=== PATIENT | female | born 1945 | race Caucasian/White ===

== ENCOUNTER 2019-07-15 18:00 | Inpatient (IN) | payer MEDICARE ==
[~2019-07-15] VITALS: Ht 160 cm; Wt 73.4 kg
[2019-07-15 21:19] VITALS: BP 153/73; BMI 29.7
--- NOTE | 2019-07-16 02:27 | NUR ---
B.) PT IS ALERT AND ORIENTED TO SELF, PLACE AND TIME. SHE IS ABLE TO MAKE HER NEEDS KNOWN.SHE IS CONTINENT OF B&B AND SHE IS ABLE TO AMBULATE ON HER OWN WITH HER WALKER THAT SHE BROUGHT IN HERSELF. SHE IS PLEASANT WITH STAFF AND PEERS. SHE IS AN UNCONTROLLED TYPE ONE DIABETIC. HER FSBS IS 400 I.)PROVIDED INSULIN PER DR. BETI Spann) COMPLIANT WITH INSULIN. FSBS AT 2330 396. FSBS AT 0230 WAS 250. TRENDING DOWNWARD. P.) WILL CONTINUE TO MONITOR.
[2019-07-16] MEDS ORDERED: DONEPEZIL HCL5 MG PO (02:40)
[2019-07-16] MEDS ORDERED: BENADRYL25 MG PO (02:41)
[2019-07-16] MEDS ORDERED: OS-CAL500 MG PO (02:42)
[2019-07-16] MEDS ORDERED: DEPAKOTE125 MG PO (02:43)
[2019-07-16] MEDS ORDERED: NEURONTIN 300300 MG PO (02:44)
[2019-07-16] MEDS ORDERED: HUMALOG MIX 75/10 ML SC (02:46)
[2019-07-16] MEDS ORDERED: LIPITOR20 MG PO (02:53)
[2019-07-16] MEDS ORDERED: COZAAR50 MG PO (02:54)
[2019-07-16] MEDS ORDERED: GLUCOPHAGE500 MG PO (02:54)
[2019-07-16] MEDS ORDERED: METOPROLOL TART25 MG PO (02:55)
[2019-07-16] MEDS ORDERED: SYNTHROID50 MCG PO (02:56)
[2019-07-16] MEDS ORDERED: ALBUTEROL SULF8.5 GM INH (02:59)
[2019-07-16] MEDS ORDERED: VITAMIN D31000 UNI2 PO (03:00)
[2019-07-16] MEDS ORDERED: TOUJEO SOL300 UNIT/1 SC (03:13)
[2019-07-16 07:00] VITALS: BP 164/78
[2019-07-16 07:12] LABS: BASOPHILS 0.3 % (0-2); HEMATOCRIT 34.3 % (36.0-48.0); HEMOGLOBIN 11.4 g/dL (12-16); IMMATURE GRANULOCYTES 0.1 % (0-5); LYMPHOCYTES 39.7 % (15-50); MCH 32.1 pg (26.0-34.0); MCHC 33.2 g/dL (31.0-37.0); MCV 96.6 fL (80.0-100.0); MEAN PLATELET VOLUME 9.8 fL (7.4-10.4); MONOCYTES 4.7 % (2-11); NEUTROPHILS 49.2 % (40-80); PLATELET COUNT 260 10x3/uL (130-400); RBC 3.55 10x6/uL (4.00-5.40); RDW 15.3 % (11.5-14.5); WBC 6.9 10x3/uL (4.8-10.8)
[2019-07-16 07:57] LABS: ALBUMIN 3.3 g/dL (3.4-5.0); ALKALINE PHOSPHATASE 111 U/L (46-116); ALT (SGPT) 15 U/L (10-68); BILIRUBIN - TOTAL 0.62 mg/dL (0.2-1.3); CALC OSMOLALITY 286 mosm/kg (275-300); CALCIUM 9.1 mg/dL (8.5-10.1); CARBON DIOXIDE 27.6 mmol/L (21.0-32.0); CHLORIDE - SERUM 102 mmol/L (98-107); CHOL - HDL RATIO 2.1 ratio (2.3-4.1); CHOLESTEROL, TOTAL 113 mg/dL (0-200); GLUCOSE 222 mg/dL (74-106); HDL CHOLESTEROL 54 mg/dL (32-96); LDL CHOLESTEROL 44 mg/dL (0-100); LDL-HDL RATIO 0.8 ratio (1.5-3.5); POTASSIUM - SERUM 4.3 mmol/L (3.5-5.1); PROTEIN - SERUM 7.5 g/dL (6.4-8.2); SODIUM 139 mmol/L (136-145); THYROID STIMULATING HORMONE 2.88 uIU/mL (0.36-3.74); TRIGLYCERIDE 77 mg/dL (30-200); UREA NITROGEN 19 mg/dL (7-18); VALPROIC ACID (DEPAKOTE) 9.1 ug/mL (50.0-100.0); eGFR NON AFRICAN AMERICAN 57 mL/min (90-120)
[2019-07-16 08:07] LABS: APPEARANCE CLOUDY (CLEAR); BACTERIA MANY /hpf (NEGATIVE); BILIRUBIN NEGATIVE (NEGATIVE); COLOR YELLOW (YELLOW); EPITHELIAL CELLS 0-5 /hpf (0-5); GLUCOSE 500 mg/dL (NEGATIVE); KETONE SMALL mg/dL (NEGATIVE); NITRITE NEGATIVE (NEGATIVE); PROTEIN NEGATIVE (NEGATIVE); RED CELLS - URINE OCC /hpf (0-5); SPECIFIC GRAVITY 1.015 (1.005-1.020); UROBILINOGEN NORMAL (NORMAL); WHITE CELLS - URINE 0-5 /hpf (NEGATIVE)
[2019-07-16 10:20] VITALS: Ht 160 cm; Wt 73.4 kg
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
[2019-07-17 00:17] VITALS: BP 149/65
[2019-07-17 08:11] LABS: RAPID PLASMA REAGIN Non Reactive (Non Reactive)
[2019-07-17 09:00] VITALS: BP 112/55
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
--- NOTE | 2019-07-17 12:10 | NUR ---
The patient's fsbs is 492, ordered a stat glucose and paged Dr. Delaney.
--- NOTE | 2019-07-17 12:55 | NUR ---
Received a call from the lab with a critical glucose 550, let Dr. Delaney know. He has ordered an increase in Lantus to 30 units at .
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
--- NOTE | 2019-07-17 16:30 | NUR ---
The patient has a fsbs of 441, provided 12 unuits humalog, request a lab redraw stat, let dr. Delaney be aware.
[2019-07-17 20:00] VITALS: BP 150/67
--- NOTE | 2019-07-17 20:06 | NUR ---
PATIENT IS PLEASANT BUT CONFUSED, SHE IS DISORIENTED TO TIME, PLACE AND SITUATION. SHE IS CALM, CAN MAKE ALL OF HER NEEDS KNOWN. WILL FOLLOW POC
--- NOTE | 2019-07-18 07:58 | NUR ---
The patient is awake and she is ambulating in the hallway, she is confused and she has said "When can we go to the cafeteria?" She is pleasant. She uses a walker to ambulate. Provide prescribed meds. The patient is compliant with meds. Continue POC.
[2019-07-18 08:38] VITALS: BP 163/78
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
--- NOTE | 2019-07-18 12:00 | NUR ---
FSBS 474, Dr. Delaney notified.
--- NOTE | 2019-07-18 13:12 | NUR ---
CRITACAL LAB GLUCOSE CALLED 524, DR. KIRBY AWARE.
--- NOTE | 2019-07-18 13:26 | NUR ---
Dr. Delaney called with a new order to change the patient's insulin from low resistance to high resisitance.
[2019-07-18 20:32] VITALS: BP 91/43
--- NOTE | 2019-07-18 20:44 | NUR ---
FSBS 33. LAB CALLED FOR STAT GLUCOSE DRAW. PT ATE HALF TURKEY SANDWICH AND HALF ORANGE. DRANKED ORANGE JUICE.
--- NOTE | 2019-07-18 20:50 | NUR ---
LAB CALLED WITH GLUCOSE OF 41. DR KIRBY CALLED AND ABHILASH HELD AND S/S CHANGED TO INTERMEDIATE PER ORDERS.
--- NOTE | 2019-07-18 20:59 | NUR ---
PATIENT IS ORIENTED TO SELF ONLY, HOWEVER SHE FUNCTIONS REALLY WELL, SHE CAN VERBALIZE ALL OF HER NEEDS WELL THE NEEDS OF OTHERS. SHE IS HELPFUL WITH THE OTHER PATIENTS, COMPLIANT WITH MEDS. WILL FOLLOW POC
--- NOTE | 2019-07-18 22:03 | NUR ---
BLOOD SUGAR RECHECKED AT 60. ORANGE JUICE AND PEANUT BUTTER WITH DALJIT CRACKERS GIVEN TO PATIENT.
--- NOTE | 2019-07-18 22:20 | NUR ---
HAD EPISODE OF VONITING AND DIARRHEA.
--- NOTE | 2019-07-18 23:35 | NUR ---
FSBS 49. PT ATE PUDDING AND DALJIT BINGCHERS.
--- NOTE | 2019-07-19 00:35 | NUR ---
FSBS 169. DIARRHA X2.
[2019-07-19 10:04] VITALS: BP 146/71
--- NOTE | 2019-07-19 10:43 | NUR ---
PT SITTING AND TALKING WITH PEERS AT THIS TIME. PT IS VERY FRIENDLY WITH STAFF AND PEERS. PT IS CONFUSED AND ALERT TO SELF ONLY. PT DOES VERY WELL WITH INTERACTION, MAKING NEEDS KNOWN. PT IS COMPLIANT WITH MEDS, STAFF AND VITALS. PT AMBUALTES WITH A WALKER. PT HAS HAD NO AGGRESSION NOTED. WILL CONT PLAN OF CARE.
--- NOTE | 2019-07-19 10:46 | PN ---
PATIENT:UZMA CALDERON MEDICAL RECORD: [id number] LOCATION:[facility] ADMISSION DATE: 07/15/19 PROGRESS NOTE DATE OF SERVICE: 07/18/2019 SUBJECTIVE: The patient's case was discussed with staff. She has no new complaint. OBJECTIVE: The patient is in good behavioral control. She has had no aggressive behavior and no thoughts of harming herself or others. ASSESSMENT: Vascular dementia. PLAN: Current medicines have been reviewed and will be maintained. TRANSINT:[id number] Voice Confirmation ID: [id number] DOCUMENT ID: [id number] OCHOA RIVERA MD at 1046 CC: [id number] DICTATION DATE: 07/18/19 1220 WHEEL PRESS CLERK: 07/18/19 1503 ADM IN [place] [id number] [place] [id number]
--- NOTE | 2019-07-19 22:48 | NUR ---
PATIENT IS ORIENTED TO SELF ONLY, SHE CAN MAKE ALL NEEDS KNOWN, COMPLIANT WITH MEDICATION. WILL FOLLOW POC
[2019-07-20 02:06] VITALS: BP 150/60
[2019-07-20 07:31] VITALS: BP 161/79
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
--- NOTE | 2019-07-20 16:03 | NUR ---
PT IS RESTING IN RECLINING CHAIR IN DAYROOM WITH PEERS. CALM AMD COOPERATIVE WITH ASSESSMENT. MED COMPLIANT. PRESCRIBED MEDS PROVIDED ORDERED. REDIRECT AND REORIENT NEEDED. NO BEHAVIORS NOTED. FALL PRECAUTIONS IN PLACE. WILL CPOC.
--- NOTE | 2019-07-20 16:11 | NUR ---
Nutrition Follow-up: Diet: Diabetic PO intake: ~79% average x last 9 meals Last BM: 07/19/19 x 3. WT: 165# (07/19/19); Admit wt: 167# (07/15/19) Meds noted: rocephin, lantus, SSI, metformin. Labs noted: Glu 593mg/dL (07/20/19) Continue current diet. Blood sugars to be controlled with insulin. Will continue to monitor. RD following.
[2019-07-20 19:48] VITALS: BP 132/56
--- NOTE | 2019-07-21 00:10 | NUR ---
B.) PT IS ALERT AND ORIENTED TO SELF, PLACE AND SITUATION. SHE IS PLEASANT WITH STAFF AND PEERS. SHE IS ABLE TO MAKE HER NEEDS KNOWN. SHE IS ABLE TO AMBULATE WITH THE ASSISTANCE OF A WALKER THAT SHE BROUGHT IN HERSELF. I.) PROVIDED PM MEDICATIONS PRESCRIBED. R.) COMPLIANT WITH ALL MEDICATIONS. P.) WILL CONTINUE TO MONITOR.
[2019-07-21 08:46] VITALS: BP 119/75
--- NOTE | 2019-07-21 10:52 | NUR ---
PT IS SITTING IN RECLINING CHAIR IN DAYROOM WITH PEERS. CALM AND COOPERATIVE WITH ASSESSMENT. PRESCRIBED MEDS PROVIDED. MED COMPLIANT. REDIRECT AND REORIENT NEEDED. NO BEHAVIORS NOTED AT THIS TIME. FALL PRECAUTIONS IN PLACE. WILL CPOC.
--- NOTE | 2019-07-21 11:46 | NUR ---
FSBS 521, Provided 20 units insulin, ordered a stat glucose and let Dr. Delaney be aware.
--- NOTE | 2019-07-21 12:00 | NUR ---
No new orders from Dr. Delaney.
--- NOTE | 2019-07-21 12:30 | NUR ---
CRITICAL GLUCOSE 536, NO NEW ORDER.
--- NOTE | 2019-07-21 15:20 | PN ---
PATIENT:UZMA CALDERON MEDICAL RECORD: [id number] LOCATION:[facility] ADMISSION DATE: 07/15/19 PROGRESS NOTE DATE OF SERVICE: 07/20/2019 SUBJECTIVE: The patient's case was discussed with staff. She has no new complaint. OBJECTIVE: The patient has impairment of her cognitive functioning, but no thoughts of harming herself or others. She is generally tolerating her medications well. ASSESSMENT: Vascular dementia. PLAN: The patient will be maintained on current medicines. I anticipate she could [facility] the [facility]. TRANSINT:[id number] Voice Confirmation ID: [id number] DOCUMENT ID: [id number] OCHOA RIVERA MD at 1520 CC: [id number] DICTATION DATE: 07/20/19 1644 WHEAT COMBINE DRIVER: 07/20/19 2335 ADM IN [facility] [address] [place] [id number]
--- NOTE | 2019-07-21 22:25 | NUR ---
REC'D SITTING IN THE DAYROOM. AMBULATORY WITH WALKER. PLEASANT AND COOPERATIVE. PREOCCUPIED WITH BLOOD SUGAR. ADMINISTER MEDS AND MONITOR COMPLIANCE. MONITOR FOR AGGRESSIVE BEHAVIOR AND REDIRECT NEEDED. MED COMPLIANT. NO AGGRESSION OBSERVED. CONTINUE POC AND PROVIDE SAFE ENVIRONMENT.
[2019-07-21 22:44] VITALS: BP 182/89
--- NOTE | 2019-07-22 11:30 | NUR ---
FSBS 407.JOEY HARRISON RN NOTIFIED OF ELEVATED BLD SUGAR,MESSAGE LEFT ON PHONE.
--- NOTE | 2019-07-22 11:34 | PN ---
PATIENT:UZMA CALDERON MEDICAL RECORD: [id number] LOCATION:[facility] ADMISSION DATE: 07/15/19 PROGRESS NOTE DATE OF SERVICE: 07/21/2019 SUBJECTIVE: The patient's case was discussed. She has no new complaint. OBJECTIVE: The patient denies that she would seek to harm herself or others. She has no overt psychotic symptoms. She is impaired cognitively, but has almost no insight about this. ASSESSMENT: Vascular dementia. PLAN: Current medicines have been reviewed. Long-term prognosis is guarded. TRANSINT:[id number] Voice Confirmation ID: [id number] DOCUMENT ID: [id number] OCHOA RIVERA MD at 1134 CC: [id number] DICTATION DATE: 07/21/19 1532 WAREHOUSE TEAM LEADER: 07/21/19 2208 ADM IN [facility] [address] [place] [address]
--- NOTE | 2019-07-22 12:05 | NUR ---
BLD SUGAR RECHECKED WITH A DIFFERENT GLUCOMETER,448.STAT SERUM GLUCOSE ORDERED.
--- NOTE | 2019-07-22 12:05 | NUR ---
A DIFFERENT GLUCOMETER OBTAINED AND FSBS RECHECKED,434.THOMAS OBTAIN STAT SERUM GLUCOSE PER ORDERS AND USE SLIDING SCALE INSULIN PER ORDERS.
--- NOTE | 2019-07-22 12:30 | NUR ---
THIS IS A CORRECTION FOR EARLIER DOCUMENTATION OF SERUM GLUCOSE.GLUCOSE WAS 448.WILL GIVE 20 UNITS REGULAR INSULIN PER SLIDING SCALE.
[2019-07-22 16:56] VITALS: BP 132/68
--- NOTE | 2019-07-22 17:01 | NUR ---
IS ORIENTED TO SELF ONLY.DOES KNOW SHE IS IN A HOSPITAL BUT STATED SHE IS IN [place] AND IT IS 2011.ARGUMENTIVE AT TIMES WITH STAFF.GOT UPSET SHE HAD TO DELAY LUNCH UNTILL SERUM GLUCOSE WAS DRAWN.WILL CONTINUE WITH CURRENT PLAN OF CARE,MONITOR FOR CHANGES AND SAFETY.
[2019-07-22 20:04] VITALS: BP 120/60
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
--- NOTE | 2019-07-23 09:44 | NUR ---
The patient is awake and alert, she is pleasant and sociable. The patient can ambulate with a walker. Provide prescribed meds. The patient is compliant with meds. Continue POC.
[2019-07-23 10:33] VITALS: BP 108/49
--- NOTE | 2019-07-23 12:32 | NUR ---
GLUCOSE WAS 559 MG/DL. WILL ORDER STAT BLOOD GLUCOSE.
--- NOTE | 2019-07-23 12:33 | NUR ---
20 UNITS ADMINISTERED PER SLIDING SCALE ORDERS. WILL RECHECK FOR EFFECTIVENESS.
--- NOTE | 2019-07-23 13:50 | NUR ---
Critical glucose 601, Dr. Delaney notified.
--- NOTE | 2019-07-23 15:00 | NUR ---
NUTRITION F/U PT TOLERATING DIABETIC DIET BUT PO INTAKE DECREASED PAST THREE MEALS. WT DOWN 1# FROM ADMIT. BM RECORDED ON 07/23/19. NOTE ELEVATE GLUCOSE. WILL CONTINUE TO PROVIDE DIET, MONITOR PO INTAKE. RD FOLLOWING
--- NOTE | 2019-07-23 15:44 | NUR ---
Nutrition Follow-up: Diet: Diabetic PO intake: ~60% average x last 9 meals Last BM: 07/23/19 x 2. WT: 165# (07/19/19); Admit wt: 167# (07/15/19) Meds noted: lantus, metformin, SSI. Labs noted: POC Glu- 44 (6:35), 559 (12:22), 601 (12:50) Recommend continue current diet. Hopefully blood sugar will begin to trend consistently WNL. RD following.
--- NOTE | 2019-07-23 15:55 | PN ---
PATIENT:UZMA CALDERON MEDICAL RECORD: [id number] LOCATION:[facility] ADMISSION DATE: 07/15/19 PROGRESS NOTE DATE OF SERVICE: 07/22/2019 SUBJECTIVE: The patient's case was discussed with staff. She has no new complaint. OBJECTIVE: The patient is not having any sexually inappropriate behavior. She is participating in treatment reasonably well. Unfortunately, her blood sugar is quite labile, going from 140 this morning to 400 at lunchtime. She will be monitored for clinical changes associated with her treatment for her diabetes and I expect or believe that meant some of her behavior issues and mood issues are related to the lability in her blood sugar. TRANSINT:[id number] Voice Confirmation ID: [id number] DOCUMENT ID: [id number] OCHOA RIVERA MD at 1555 CC: [id number] DICTATION DATE: 07/22/19 1631 PRODUCT SUPPORT REPRESENTATIVE: 07/23/19 0207 ADM IN [place] [id number] [place] [address]
[2019-07-23 20:13] VITALS: BP 110/52
--- NOTE | 2019-07-23 21:30 | NUR ---
FSBS 58. PUDDING AND MILK GIVEN TO PATIENT.
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
--- NOTE | 2019-07-23 22:58 | NUR ---
FSBS 65. ORANGE JUICE GIVEN TO PT.
--- NOTE | 2019-07-24 01:06 | NUR ---
FSBS 158.
--- NOTE | 2019-07-24 07:44 | NUR ---
The patient is awake and alert, she is c/o diarrhea. She ambulates on a walker. She is calm and pleasant. She asked "What time is someone picking me up?" Explained to her that she is not leaving today. She said "Oh, ok." Provide prescribed meds. The patient is compliant with meds. Her blood sugars continue to vascilate. Continue POC.
[2019-07-24 11:07] VITALS: BP 122/60
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
--- NOTE | 2019-07-24 19:30 | NUR ---
RECEIVED IN DAYROOM. WATCHING TV. CALM AND COOPERATIVE WITH CARE AND ASSESSMENT. PLEASANT. NO AGGRESSIVE BEHAVIOR. TRIES TO HELP WITH OTHER PATIENS. REDIRECT AND REORIENT NEEDED. WATCHES TV WHILE WAITING ON PM MEDICATIONS. CONTINUE PLAN OF CARE.
[2019-07-24 19:54] VITALS: BP 138/54
--- NOTE | 2019-07-25 10:30 | PN ---
PATIENT:UZMA CALDERON MEDICAL RECORD: [id number] LOCATION:[facility] ADMISSION DATE: 07/15/19 PROGRESS NOTE DATE OF SERVICE: 07/24/2019 SUBJECTIVE: The patient's case was discussed with staff. She has no new complaint. OBJECTIVE: The patient is in good behavioral control, has not been aggressive and says that she is not going to have conflict with the other woman at the alf. ASSESSMENT: Vascular dementia. PLAN: Brief supportive and educational interventions were made. Long-term prognosis is guarded. TRANSINT:[id number] Voice Confirmation ID: [id number] DOCUMENT ID: [id number] OCHOA RIVERA MD at 1030 CC: [id number] DICTATION DATE: 07/24/19 1643 RECYCLING ATTENDANT: 07/25/19 0039 ADM IN [facility] [address] [place] [address]
--- NOTE | 2019-07-25 11:08 | NUR ---
The patient is awake and alert, she says she is tired this am, she is pleasant and cooperative. She tries to help other patients and staff. She ambulates with a walker. She is not making any paranoid statements and she has not been aggressive. Provide prescribed meds. The patient is compliant with medications. Continue POC.
--- NOTE | 2019-07-25 11:45 | NUR ---
UYYG=[id number] LAB CALLEDTO DRAW A STAT GLUCOSE
--- NOTE | 2019-07-25 12:40 | NUR ---
fsbs 421, ordered stat glucose, notified Dr. Delaney.
[2019-07-25 19:00] VITALS: BP 126/62
--- NOTE | 2019-07-25 19:34 | NUR ---
RECEIVED IN DAYROOM. SITTING IN WHEELCHAIR WITH PEERS AT HER SIDE. CALM AND COOPERATIVE WITH CARE AND ASSESSMENT. NO SIGNS OF AGGRESSION. ENCOURAGE TO EXPRESS NEEDS. SITTING IN A CHAIR OUTSIDE OF NURSES STATION AT THIS TIME. CONTINUE PLAN OF CARE
[2019-07-26 09:47] VITALS: BP 136/69
--- NOTE | 2019-07-26 17:22 | NUR ---
PATIENT HAS BEEN QUITE COOPERATIVE THIS SHIFT. NO AGGRESSION NOTED. TAKES MEDS WHOLE WITHOUT DIFFICULTY. VERY COOPERATIVE WITH PLAN OF CARE. CONT POC DIRECTED.
--- NOTE | 2019-07-26 19:18 | NUR ---
RECEIVED IN DAYROOM, SITTING IN A RECLINER WITH PEERS AT HER SIDE. CALM AND COOPERATIVE WITH CARE AND ASSESSMENT. NO SIGNS OF AGGRESSION. REDIRECT AND REORIENT NEEDED. RESTING IN BED WITH EYES OPEN AT THIS TIME. CONTINUE PLAN OF YURI
--- NOTE | 2019-07-27 08:00 | NUR ---
PT IS AWAKE AND ALERT TO SELF. CALM AND COOPERATIVE WITH ASSESSMENT. PRESCRIBED MEDS PROVIDED ORDERED. MED COMPLIANT. NO BEHAVIORS NOTED AT THIS TIME. REDIRECT AND REORIENT NEEDED. WILL CPOC.
[2019-07-27 09:25] VITALS: BP 127/60
--- NOTE | 2019-07-27 16:07 | PN ---
PATIENT:UZMA CALDERON MEDICAL RECORD: [id number] LOCATION:[facility] ADMISSION DATE: 07/15/19 PROGRESS NOTE DATE OF SERVICE: 07/26/2019 SUBJECTIVE: The patient's case was discussed with staff. She has no new complaint. OBJECTIVE: The patient is impaired cognitively, but her mood is euthymic. Her affect is appropriate. Short-term memory is moderately impaired, and she has no thoughts of harming herself or others and no psychotic symptoms. ASSESSMENT: No change in diagnoses. PLAN: Supportive and educational interventions were made. The patient will be maintained on current medicines. I anticipate she can be transitioned out of the hospital soon. TRANSINT:[id number] Voice Confirmation ID: [id number] DOCUMENT ID: [id number] OCHOA RIVERA MD at 1607 CC: [id number] DICTATION DATE: 07/26/19 1129 LEGAL ARBITRATOR: 07/26/19 1220 ADM IN [place] [id number] [place] [address]
--- NOTE | 2019-07-27 16:07 | PN ---
PATIENT:UZMA CALDERON MEDICAL RECORD: [id number] LOCATION:[facility] ADMISSION DATE: 07/15/19 PROGRESS NOTE DATE OF SERVICE: 07/25/2019 SUBJECTIVE: The patient's case was discussed with staff. She has no new complaint. OBJECTIVE: The patient is in good behavioral control with poor insight about her situation. ASSESSMENT: Vascular dementia. PLAN: Current medicines have been reviewed. Brief supportive and educational interventions were made. I anticipate she can be discharged soon. TRANSINT:[id number] Voice Confirmation ID: [id number] DOCUMENT ID: [id number] OCHOA RIVERA MD at 1607 CC: [id number] DICTATION DATE: 07/25/19 1106 GLUE SPECIALTY SUPERVISOR: 07/25/19 1148 ADM IN [place] [id number] [place] [id number]
--- NOTE | 2019-07-27 20:26 | NUR ---
RECEIVED IN HALLWAY WALKING IN HER BEDROOM. CALM AND COOPERATIVE WITH CARE AND ASSESSMENT. NO SIGNS OF AGGRESSION. ENCOURAGE TO EXPRESS NEEDS. RESTING IN BED WITH EYES CLOSED AT THIS TIME. CONTINUE PLAN OF CARE
[2019-07-28 03:29] VITALS: BP 106/51
[2019-07-28 09:27] VITALS: BP 123/67
--- NOTE | 2019-07-28 14:03 | PN ---
PATIENT:UZMA CALDERON MEDICAL RECORD: [id number] LOCATION:[facility] ADMISSION DATE: 07/15/19 PROGRESS NOTE DATE OF SERVICE: 07/27/2019 SUBJECTIVE: The patient's case was discussed with staff. She has no new complaint. OBJECTIVE: The patient denies intent to harm herself or others. She is participating in treatment, minimally. ASSESSMENT: Vascular dementia. PLAN: The patient is appropriate for transitioning back [facility] [place] [facility]. There are some nonclinical issues or obstacles preventing that today. Once those are cleared, she can be discharged. TRANSINT:[id number] Voice Confirmation ID: [id number] DOCUMENT ID: [id number] OCHOA RIVERA MD at 1403 CC: [id number] DICTATION DATE: 07/27/19 1625 WELDING EQUIPMENT REPAIRER SUPERVISOR: 07/27/19 2125 ADM IN [place] [id number] [place] [id number]
[2019-07-28] MEDS ORDERED: ZOLOFT50 MG PO (21:37)
[2019-07-28] MEDS ORDERED: COZAAR25 MG PO (21:37)
[2019-07-28] MEDS ORDERED: Senokot TAB PO (21:38)
--- NOTE | 2019-07-29 00:17 | NUR ---
B) Patient is alert and oriented to person, place and time, ADL independant, calm and cooperative I) Administered scheduled medications as ordered, assisted with needs, monitored for safety R) Mediation compliant, sleeping now quietly in her bed, P) Continue plan of care.
[2019-07-29 04:07] VITALS: BP 165/76
[2019-07-29 09:13] VITALS: BP 114/41
--- NOTE | 2019-07-29 10:15 | NUR ---
DISCHARGE PAPERWORK COMPLETED. LEFT HOSPITAL VIA VAN TO [facility]. BELONGINGS GIVEN TO PATIENT.
--- NOTE | 2019-07-29 12:00 | PN ---
PATIENT:UZMA CALDERON MEDICAL RECORD: [id number] LOCATION:[facility] ADMISSION DATE: 07/15/19 PROGRESS NOTE DATE OF SERVICE: 07/28/2019 SUBJECTIVE: The patient's case was discussed with staff. She has no new complaint. OBJECTIVE: The patient is in good behavioral control with poor insight about her situation. ASSESSMENT: Vascular dementia. PLAN: Arrangements have been finalized with the group home and the transportation. She will be returned to the [facility] tomorrow. TRANSINT:[id number] Voice Confirmation ID: [id number] DOCUMENT ID: [id number] OCHOA RIVERA MD at 1200 CC: [id number] DICTATION DATE: 07/28/19 1546 PROSPECTING DRILLER HELPER: 07/28/19 2110 ADM IN [place] [id number] [place] [address]
== END 2019-07-29 10:15 | DRG 884 ==
LOC: D.PSYCH 18:00
PROVIDERS: ADMIT Psychiatry & Neurology Psychiatry; ATTEND Psychiatry & Neurology Psychiatry
DX: F01.51 Vascular dementia, unspecified severity, with behavioral disturbance (principal); N39.0 Urinary tract infection, site not specified; E11.9 Type 2 diabetes mellitus without complications; I10 Essential (primary) hypertension; E78.5 Hyperlipidemia, unspecified; E03.9 Hypothyroidism, unspecified; M19.90 Unspecified osteoarthritis, unspecified site; E55.9 Vitamin D deficiency, unspecified; E53.8 Deficiency of other specified B group vitamins; F32.9 Major depressive disorder, single episode, unspecified; B96.20 Unspecified Escherichia coli [E. coli] as the cause of diseases classified elsewhere; Z96.652 Presence of left artificial knee joint

== ENCOUNTER 2020-08-17 16:14 | Inpatient (IN) | payer MEDICARE ==
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
[~2020-08-17 16:14] MED LIST: ALBUTEROL SULF8.5 GM INH; BENADRYL25 MG PO; COZAAR25 MG PO; COZAAR50 MG PO; DEPAKOTE125 MG PO; DONEPEZIL HCL5 MG PO; GLUCOPHAGE500 MG PO; HUMALOG MIX 75/10 ML SC; LIPITOR20 MG PO; METOPROLOL TART25 MG PO; NEURONTIN 300300 MG PO; OS-CAL500 MG PO; SYNTHROID50 MCG PO; Senokot TAB PO; TOUJEO SOL300 UNIT/1 SC; VITAMIN D31000 UNI2 PO; ZOLOFT50 MG PO
[2020-08-17] MEDS ORDERED: LANTUS INS100 UNITS/ SC (18:41)
[2020-08-17] MEDS ORDERED: BUSPAR5 MG PO (18:56)
[2020-08-17] MEDS ORDERED: DEPAKOTE ER250 MG (18:57)
[2020-08-17] MEDS ORDERED: FERROUS SULFAT325 MG (18:58)
[2020-08-17] MEDS ORDERED: LASIX20 MG PO (18:58)
[2020-08-17] MEDS ORDERED: GLUCOTROL XL 5 M5 MG (18:59)
[2020-08-17] MEDS ORDERED: HUMALOG 30100 UNITS/ SC (19:00)
[2020-08-17] MEDS ORDERED: K-DUR20 MEQ PO (19:00)
--- NOTE | 2020-08-17 19:16 | NUR ---
PT ADMITTED TO [facility] FROM [facility] FOR AGGRESSIVE BEHAVIOR WITH STAFF. PT ARRIVED VIA FACILITY VAN IN W/C. PT IS CALM AT THIS TIME. NURSE SPOKE WITH DAUGHTER KASSIDY LI FOR CONSENT FOR ADMISSION. PT IS ALERT AND ORIENT TO PERSON, PLACE. WEIGHT OBTAINED: 132.2. VITALS SIGNS: 98.5, 131/55, 74, 19, 94%. FULL CODE. PT ON DROPLET PRECAUTIONS FOR PUI.
[2020-08-17 20:00] VITALS: BP 149/66
[2020-08-17 20:01] VITALS: BP 131/55; BMI 23.4
--- NOTE | 2020-08-17 21:35 | NUR ---
B) Patient is alert and oriented to self, calm and cooperative this shift, I) Administered scheduled medications as ordered, maintained isolation, monitored for safety R) Mediation compliant, resting now quietly in her bed, P) Continue plan of care.
--- NOTE | 2020-08-18 04:38 | NUR ---
COVID SPECIMEN COLLECTED FOR SEND OUT AND SENT TO LAB. PT. TOLERATED WELL.
[2020-08-18 07:28] LABS: BASOPHILS 0.5 % (0-2); EOSINOPHILS 4.2 % (0-7); HEMATOCRIT 38.1 % (36.0-48.0); HEMOGLOBIN 12.3 g/dL (12-16); IMMATURE GRANULOCYTES 0.2 % (0-5); LYMPHOCYTE ABS# 2.18 10x3/uL (1.18-3.74); LYMPHOCYTES 35.2 % (15-50); MCH 31.9 pg (26.0-34.0); MCHC 32.3 g/dL (31.0-37.0); MCV 98.7 fL (80.0-100.0); MEAN PLATELET VOLUME 10.6 fL (7.4-10.4); MONOCYTES 7.9 % (2-11); NEUTROPHIL ABS# 3.23 10x3/uL (1.56-6.13); PLATELET COUNT 239 10x3/uL (130-400); RBC 3.86 10x6/uL (4.00-5.40); RDW 15.1 % (11.5-14.5); WBC 6.2 10x3/uL (4.8-10.8)
[2020-08-18 08:19] LABS: ALBUMIN 3.2 g/dL (3.4-5.0); ANION GAP 10.2 mmol/L (8-16); BILIRUBIN - TOTAL 0.26 mg/dL (0.2-1.3); CALCIUM 9.1 mg/dL (8.5-10.1); CARBON DIOXIDE 30.8 mmol/L (21.0-32.0); CHOL - HDL RATIO 2.6 ratio (2.3-4.1); CREATININE - SERUM 1.2 mg/dL (0.6-1.3); LDL-HDL RATIO 1.2 ratio (1.5-3.5); THYROID STIMULATING HORMONE 2.06 uIU/mL (0.36-3.74); VALPROIC ACID (DEPAKOTE) 22.7 ug/mL (50.0-100.0)
--- NOTE | 2020-08-18 08:30 | NUR ---
NURSE NOTIFIED DR. KIRBY IN REGARDS TO CRITICAL LAB RESULTS. NEW ORDER: START LDSS AND LANTUS ORDER. T.O.R.B: DR. KIRBY/YOEL FRIEDMAN.
[2020-08-18 09:36] VITALS: BP 98/67
[2020-08-18 11:55] VITALS: Wt 65.0 kg
--- NOTE | 2020-08-18 15:10 | NUR ---
pt sitting in w/c in door at this time. confusion noted. redirect and reorient as needed. constant redirection due to droplet isolation precautions. pt does not verbalize understanding. pt compliant with meds, vitals and assessments. pt can make needs known. demanding and arguementative. pt argues with staff. unable to redirect pt behavior due to low congitive function. pt in w/c propells self. fsbs ac and hs with lantus order. chair alarm in place. will cont plan of care.
[2020-08-18 20:00] VITALS: BP 144/63
--- NOTE | 2020-08-18 21:29 | NUR ---
B) Patient is alert and oriented to person, wanders the hallway, informed a female nurse of all her marriage problems in detail at the nurses station, I) Administered scheduled medications as ordered, redirected as needed, isolation protocols, R) Medication noncompliant, refusing FSBS at HS P) Continue plan of care.
--- NOTE | 2020-08-19 06:06 | NUR ---
CHECKED BLOOD GLUCOSE-REGISTERED "HI". PLACED ORDER FOR BLOOD GLUCOSE, GAVE THE 12 UNITS OF REGULAR INSULIN AND CALLED DR. KIRBY AND LEFT A CALL BACK NUMBER. PATIENT IS ALERT BUT TIRED, EXPLAINED TO HER THAT HER BLOOD GLUCOSE WAS HIGH AND THAT LAB WOULD BE HERE SHORTLY TO DRAW HER BLOOD, SHE VERBALIZED UNDERSTANDING.
--- NOTE | 2020-08-19 06:11 | NUR ---
CALLED DR. KIRBY BACK, GAVE REPORT OF BLOOD GLUCOSE REGISTERING "HI" ON THE GLUCOMETER AND THAT 12 UNITS OF REGULAR INSULIN WAS GIVEN PER HOSPITAL PROTOCOL. HE SAID THAT THE PROTOCOL WAS FOLLOWED WAS ACCURATE AND TO CALL HIM WITH THE LAB RESULTS WHEN RECEIVED.
--- NOTE | 2020-08-19 06:14 | NUR ---
ALSO PATIENT REFUSED HER BLOOD GLUCOSE TO BE TAKEN ON LAST NIGHT'S SHIFT DUE TO BE SO UPSET ABOUT HER "CHEATING" ON HER.
--- NOTE | 2020-08-19 07:43 | NUR ---
PREVIOUS SHIFT REPORTED PT REFUSED FSBS AND LANTUS INSULIN AT 1999. FSBS AT 0600 UNABLE TO READ BY MACHINE. LAB CALLED STAT GLUCOSE OF 778 MG/DL. NURSE NOTIFIED DR. KIRBY OF STAT GLUCOSE LEVEL. NEW ORDER FOR REGULAR INSULIN 20 UNITS NOW. T.O.R.B: DR. KIRBY/ELDER, YOEL.
--- NOTE | 2020-08-19 08:14 | NUR ---
PT REC'D [address]IN PER [address] KIRBY FOR BLOOD SUGAR OF 778 MG/DL. PT ALLOWED NURSE AND TOLERATED WELL.
[2020-08-19 09:18] VITALS: BP 113/61
--- NOTE | 2020-08-19 10:59 | NUR ---
PT LAYING IN BED AT THIS TIME. EYES CLOSED. PT IS CALM AND COOPERATIVE. PT CAN BE AGRUMENTATIVE AT TIMES. CONFUSION NOTED. REDIRECT AND REORIENT NEEDED. PT CAN MAKE NEEDS KNOWN. PT DID REC A PRN ON PREVIOUS SHIFT. CONT TO MONITOR FALL PRECAUTIONS. NO BEHAVIORS NOTED THIS SHIFT. COMPLIANT WITH MEDS, VITALS AND ASSESSMENTS. BED AND CHAIR ALARM IN PLACE AND ACTIVE. WILL CONT PLAN OF CARE.
[2020-08-19 20:00] VITALS: BP 135/80
--- NOTE | 2020-08-19 21:50 | NUR ---
PT RECEIVED IN BED IN HER ROOM. SHE IS ABLE TO AMBULATE USING A WHEELCHAIR. SHE IS ALERT AND ORIENTED TO SELF AND SITUATION. COMPLIANT WITH ALL MEDICATIONS. FSBS 224. VSS. EASY TO REDIRECT. MONITOR FOR SAFETY.
--- NOTE | 2020-08-20 08:08 | NUR ---
Obtained urine for ua and culture.
[2020-08-20 08:36] LABS: BILIRUBIN NEGATIVE (NEGATIVE); KETONE NEGATIVE (NEGATIVE); NITRITE NEGATIVE (NEGATIVE); UROBILINOGEN NORMAL mg/dL (< 2)
[2020-08-20 08:38] LABS: WHITE CELLS - URINE 25-50 HPF (0-4)
[2020-08-20 08:39] LABS: BACTERIA FEW HPF (NONE SEEN); SQUAMOUS EPITHELIAL 0-5 HPF (0-4)
--- NOTE | 2020-08-20 09:15 | NUR ---
Lab called and said the patient's COVID test is negative.
--- NOTE | 2020-08-20 09:23 | NUR ---
The patient is pleasant and calm this am, she says she just wants to be lazy today. Asked her "Do you know where you are?" She said "Well, I know I am in a hospital, but don't know the name of it." Explained to her that she is [facility] in [place], [place]. She said "Well, who brought me here?" Explained to her that it was probably staff at the [facility] or family. She said "Ok" She has not shown any aggression this am and she has not made any mention sex. Provide prescribed meds, monitor for med compliance. The patient is able to sit in the w/c and self propel and transfers. She has poor insight into her situation and she has poor short term memory recall. Continue POC.
[2020-08-20 09:51] VITALS: BP 135/63
--- NOTE | 2020-08-20 18:02 | NUR ---
Rec'd this am in room. She prefers to be by herself but will converse with staff freely. Takes meds whole. High blood glucose level at 1130. She is calm and cooperative.
[2020-08-20 20:00] VITALS: BP 109/52
--- NOTE | 2020-08-20 21:43 | NUR ---
PT IS ALERT AND ORIENTED TO SELF AND SITUATION. SHE IS RECEIVED IN HER ROOM IN HER BED. SHE IS ABLE TO TRANSFER HERSELF TO WHEELCHAIR AND TO THE RESTROOM WITHOUT ASSIST. CALM AND COOPERATIVE WITH STAFF. EXPRESSES APPRECIATION WITH STAFF. COMPLIANT WITH ALL MEDICATIONS. EASY TO REDIRECT. MONITOR FOR SAFETY.
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
[2020-08-21 08:00] VITALS: BP 115/49
--- NOTE | 2020-08-21 19:34 | NUR ---
RECEIVED IN HALLWAY OUTSIDE OF NURSES STATION TALKING ON THE PHONE. CALM AND COOPERATIVE WITH CARE AND ASSESSMENT. NO SIGNS OF AGGRESSION. REDIRECT AND REORIENT NEEDED. RESTING IN BED WITH EYES OPEN AT THIS TIME. CONTINUE PLAN OF CARE.
[2020-08-21 21:02] VITALS: BP 126/58
[2020-08-22 08:00] VITALS: BP 108/53
--- NOTE | 2020-08-22 12:41 | NUR ---
Nutrition Follow-up: Diet: Diabetic PO intake: 75-100% x last 6 meals Last BM: 08/21/20. Wt: 132# (08/21/20); Admit Wt: 132# (08/17/20) Meds noted: lantus, metformin, kdur, lasix, probiotics, abx, oscal, SSI Labs noted: POC Glu 80(WNL)- 08/22/20 Recommend [address] current diet. RD will follow-up 08/24/20.
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
--- NOTE | 2020-08-22 17:36 | NUR ---
RECEIVED IN PATIENT ROOM. CALM AND COOPERATIVE WITH CARE AND ASSESSMENT. NO AGGRESSIVE BEHAVIOR TODAY. NO ACCUSATORY STATEMENTS MADE. REDIRECT AND REORIENT NEEDED. EATING AT THIS TIME. CONTINUE PLAN OF CARE.
--- NOTE | 2020-08-22 19:35 | NUR ---
RECEIVED IN HALLWAY OUTSIDE OF NURSES STATION. IN GOOD SPIRITS. SOCIAL WITH STAFF AND PEERS. NO SIGNS OF AGGRESSION. REDIRECT AND REORIENT NEEDED. CONTINUES TO SOCAILIZE WITH PEERS. CONTINUE PLAN OF CARE.
[2020-08-22 22:19] VITALS: BP 136/61
[2020-08-23 08:00] VITALS: BP 143/71
--- NOTE | 2020-08-23 08:30 | NUR ---
RECEIVED IN PATIENT ROOM. CALM AND COOPERATIVE WITH CARE AND ASSESSMENT. NO AGGRESSIVE BEHAVIOR. DELUSIONAL ABOUT HER AT TIMES. REDIRECT AND REORIENT NEEDED. EATING BREAKFAST AT THIS TIME. CONTINUE PLAN OF CARE.
--- NOTE | 2020-08-23 15:12 | PN ---
PATIENT:UZMA CALDERON MEDICAL RECORD: [id number] LOCATION:[facility] ADMISSION DATE: 08/17/20 PROGRESS NOTE DATE OF SERVICE: 08/22/2020 SUBJECTIVE: The patient's case was discussed with staff. She has no new complaint. OBJECTIVE: The patient is only partially oriented. She continues to insist that other [facility] are [facility] and she is angry about it and is not going to put up with it. ASSESSMENT: Vascular dementia. PLAN: Current medicines have been reviewed. This is a difficult problem to handle. These delusions are not related to an underlying thinking disorder, but rather are associated with a dementing illness. They are minimally responsible to medications. Behaviorally it may be appropriate to place her and her on different units, but then that is them from one another. I will discuss this with the treatment team. Current medicines have been reviewed and will be continued. TRANSINT:[id number] Voice Confirmation ID: [id number] DOCUMENT ID: [id number] OCHOA RIVERA MD at 1512 CC: [id number] DICTATION DATE: 08/22/20 1621 DISTRIBUTION SALES REPRESENTATIVE: 08/22/20 2255 ADM IN [place] [id number] [place] [address]
--- NOTE | 2020-08-23 19:18 | NUR ---
RECEIVED IN HALLWAY. SITTING WITH PEERS SOCAILIZING. CALM AND COOPERATIVE WITH CARE AND ASSESSMENT. NO SIGNS OF AGGRESSION. REDIRECT AND REORIENT NEEDED. CONTINUES TO SIT CALMLY SOCIALIZING WITH PEERS. CONTINUE PLAN OF CARE.
[2020-08-23 19:30] VITALS: BP 111/49
--- NOTE | 2020-08-24 08:31 | NUR ---
Nutrition Reassessment/Follow-up: Eating well. Diet: Diabetic PO intake: 95% avg x 9 meals Wt: 132# (08/21); 132.2# (08/17) Last BM: 08/23 Labs noted: POC Glu 120 Meds noted: Lantus, Humulin, Floranex, Oscal -Nutrition needs unchanged. -RD will follow up within 7 days.
--- NOTE | 2020-08-24 08:45 | NUR ---
RECEIVED IN PATIENT ROOM. SITTING ON SIDE OF BED. CALM AND COOPERATIVE WITH CARE AND ASSESSMENT. NO AGGRESSION. NO DELUSIONAL STATEMENTS MADE THIS MORNING. REDIRECT AND REORIENT NEEDED. EATING BREAKFAST AT THIS TIME. CONTINUE PLAN OF CARE.
[2020-08-24 09:19] VITALS: BP 141/84
--- NOTE | 2020-08-24 13:46 | PN ---
PATIENT:UZMA CALDERON MEDICAL RECORD: [id number] LOCATION:[facility] ADMISSION DATE: 08/17/20 PROGRESS NOTE DATE OF SERVICE: 08/23/2020 SUBJECTIVE: The patient's case was discussed with staff. OBJECTIVE: The patient is delusional. She believes that this is the anniversary of her leaving her because she is too old and ugly. She is and her lives in the custodial with her and she is here in the hospital because she believed that other women in the custodial were trying to steal her from her and she was aggressive over this. ASSESSMENT: Dementia. PLAN: I am going to treat the patient's disorganized and delusional thought processes with a higher potency antipsychotic. I am going to start her on a scheduled dose of Haldol at 2 mg at bedtime. TRANSINT:[id number] Voice Confirmation ID: [id number] DOCUMENT ID: [id number] OCHOA RIVERA MD at 1346 CC: [id number] DICTATION DATE: 08/23/20 1545 SEWER HEAD: 08/23/20 2214 ADM IN [facility] [address] [place] [address]
[2020-08-24 21:30] VITALS: BP 119/52
--- NOTE | 2020-08-24 21:54 | NUR ---
PT IS ALERT AND ORIENTED TO SELF AND SITUATION ONLY. CALM AND COOPERATIVE WITH STAFF. COMPLIANT WITH ALL MEDICATIONS. ABLE TO TRANSFER INTO WHEELCHAIR WITHOUT ASSIST. EASY TO REDIRECT. DENIES ANY NEEDS AT THIS TIME.
[2020-08-25 08:00] VITALS: BP 130/64
--- NOTE | 2020-08-25 10:58 | PN ---
PATIENT:UZMA CALDERON MEDICAL RECORD: [id number] LOCATION:[facility] ADMISSION DATE: 08/17/20 PROGRESS NOTE DATE OF SERVICE: 08/24/2020 SUBJECTIVE: The patient's case was discussed with staff. She has no new complaint. OBJECTIVE: The patient is in good behavioral control and has not been disruptive today. ASSESSMENT: Dementia. PLAN: Current medicines have been reviewed and brief supportive and educational interventions were provided. TRANSINT:[id number] Voice Confirmation ID: [id number] DOCUMENT ID: [id number] OCHOA RIVERA MD at 1058 CC: [id number] DICTATION DATE: 08/24/20 1522 INVENTORY SPECIALIST: 08/24/20 1525 ADM IN [place] [id number] [place] [address]
--- NOTE | 2020-08-25 12:21 | NUR ---
PT IS IN CONTACT ISOLATION FOR ESBL IN HER URINE. PT IS COOPERATIVE WITH CARE. NO AGGRESSION NOTED. PT EASIER TO REDIRECT TODAY WHEN NEEDED. MEDICATIONS GIVEN ORDERED. WILL CONTINUE TO MONITOR AND CONTINUE WITH PLAN OF CARE.
--- NOTE | 2020-08-25 15:26 | NUR ---
Rec'd this patient this am in bed. A/O times 1 to person. Took Meds whole without difficulty. She has been very calm and cooperative today. No noted paranoia today and no aggression to this nurse. She loves to reminease. New med Tylenol 650mg BID. 1130 FSBS WAS 124
--- NOTE | 2020-08-25 17:54 | NUR ---
Today at approx 1630 Patients FSBS was read at 451 per glucometer. I notified the lab and requested a stat FSBS. Albert then calls results of 471. I gave 20 units per sliding scale and left a message for Rosmery HERNANDEZ weapons engineer for Dr. Delaney. I rec'd a call from Rosmery with request to repeat FSBS in about an hour and "we'll go from there to see if it's going gown"
[2020-08-25 20:07] VITALS: BP 133/58
--- NOTE | 2020-08-25 21:16 | NUR ---
PT IS ALERT AND ORIENTED TO SELF AND SITUATION. RECEIVED IN ROOM RESTING IN BED. COMPLIANT WITH ALL MEDICATIONS. FSBS 312. ADMINISTERED SCHEDULED INSULIN PER ORDERS. ABLE TO TRANSFER SELF INTO WHEELCHAIR. EASY TO REDIRECT. DENIES ANY NEEDS AT THIS TIME.
--- NOTE | 2020-08-25 23:45 | NUR ---
PT REPORTS THAT SHE DOESNT FEEL WELL AND SHE IS VERY HUNGRY. SKIN IS COOL AND CLAMY. FSBS 31. RECHECKED FSBS 29. ADMINISTERED SNACK. RECHECK IN 15 MINUTES.
--- NOTE | 2020-08-26 | NUR ---
FSBS 77. PT REPORTS SHE IS FEELING WELL. RESTING CALMLY IN BED.
--- NOTE | 2020-08-26 15:06 | NUR ---
Rec'd patient this am in bed. She is A/O times 2 to person and situation. She takes meds whole. FSBS obtained and treated. She is in contact isolation for ESBL in her urine. She is on ABT. She is paranoid about her family issues where she believes her is "cheating on her" and "he's not much of a man". She has not shown any aggressive behavior with the staff or other patients. She is calm, cooperative, and pleasant. She participated some with educational needs for medication, disease process, and diet but will participate some but is easily distracted and has to be redirected.
--- NOTE | 2020-08-26 19:30 | NUR ---
PT BS WAS TAKEN BY THE CHARGE NURSE. IT WAS 392.
[2020-08-26 20:00] VITALS: BP 133/60
--- NOTE | 2020-08-26 22:42 | NUR ---
REGULAR INSULIN [address] ORDER AND LANTUS INSULIN 14 UNITS GIVEN SQ PER DR. ORDER.
--- NOTE | 2020-08-27 00:15 | NUR ---
BLOOD SUGAR RECHECK IS 76. SHE WAS GIVEN 2 SMALL JUICE CONTAINER OF APPLE JUICE PO.
--- NOTE | 2020-08-27 06:14 | NUR ---
PT BS IS 45. SHE WAS GIVEN ORANGE JUICE X 2 WITH 4 PKG SUGAR AND TWO PKT OF DALJIT CRACKERS.
--- NOTE | 2020-08-27 07:09 | NUR ---
RECHECK OF BS IS 176. SHE IS RESTING QUIETLY IN BED.
[2020-08-27 08:00] VITALS: BP 108/47
--- NOTE | 2020-08-27 09:02 | NUR ---
The patient is awake and she is alert, she has not mentioned any parania or delusion about her and his girlfriend. She has not shown any aggression this am. She is pleasant and calm. Provide prescribed meds. The patient is compliant with meds, her blood sugars remain brittle. She wants to come out of her room and socialize, she remains on isolation d/t ecoli and esbl in her urine. She can transfer and self propel in her w/c. Continue POC.
[2020-08-27 20:00] VITALS: BP 97/35
--- NOTE | 2020-08-27 22:29 | NUR ---
RECEIVED PATIENT IN HER ROOM, SHE REFUSED HER HALDOL AND NEURONTIN PO. SHE IS ANXIOUS AND CONSTANTLY COMES TO THE NURSE'S DESK FOR VARIOUS REASONS. SHE REPORTS THAT SHE IS NERVOUS BUT IS "SCARED" TO TAKE HER MEDS. ATIVAN AND HALDOL GIVEN IM FOR ANXIOUSNESS. WILL MONITOR FOR EFFECTIVENESS
--- NOTE | 2020-08-27 23:25 | NUR ---
PRN EFFECTIVE. PATIENT RESTING. WILL CONTINUE TO MONITOR
[2020-08-28 12:21] VITALS: BP 155/66
--- NOTE | 2020-08-28 17:07 | NUR ---
RECEIVED IN PATIENT ROOM. RESTING IN BED WITH EYES OPEN. CALM AND COOPERATIVE WITH CARE AND ASSESSMENT. PARANOID AND SCARED ABOUT TAKING HER MEDICATIONS. ANXIOUS. DID TAKE HER MEDICATIONS WITH ENCOURAGEMENT, EXPLANATION OF WHAT ALL HER MEDICATIONS WERE, AND REASSURANCE THAT THE MEDICATIONS WERE NOT GOING TO KILL HER. REDIRECT AND REORIENT NEEDED. WAITING ON DINNER TRAY TO ARRIVE AT THIS TIME. CONTINUE PLAN OF CARE.
--- NOTE | 2020-08-28 20:03 | NUR ---
RECEIVED IN BEDROOM. RESTING IN BED WITH EYES OPEN. CALM AND COOPERATIVE WITH CARE AND ASSESSMENT. NO SIGNS OF AGGRESSION. REDIRECT AND REORIENT NEEDED. CONTINUES TO REST CALMLY IN BED . CONTINUE PLAN OF CARE.
[2020-08-28 20:47] VITALS: BP 132/57
[2020-08-29 08:16] VITALS: BP 100/50
--- NOTE | 2020-08-29 09:00 | NUR ---
REC'D PT IN ROOM RESTING IN BED WITH EYES OPEN. CALM AND COOPERATIVE WITH ASSESSMENT. PARANOID AND SCARED AT TIMES. REDIRECT AND REORIENT NEEDED. PRESCRIBED MEDS PROVIDED ORDERED. MED COMPLIANT. PT CONTINUED ON CONTACT ISOLATION FOR ESBL AND VRE IN URINE. FALL PRECAUTIONS IN PLACE. WILL CPOC.
--- NOTE | 2020-08-29 15:12 | PN ---
PATIENT:UZMA CALDERON MEDICAL RECORD: [id number] LOCATION:[facility] ADMISSION DATE: 08/17/20 PROGRESS NOTE DATE OF SERVICE: 08/25/2020 SUBJECTIVE: The patient's case was discussed with staff. She has no new complaint. OBJECTIVE: The patient is partially oriented and is no longer making delusional statements about her . She is participating in treatment reasonably well and her appetite is good. ASSESSMENT: Vascular dementia. PLAN: I anticipate the patient can be transitioned out of the hospital soon if this level of improvement continues. TRANSINT:[id number] Voice Confirmation ID: [id number] DOCUMENT ID: [id number] OCHOA RIVERA MD at 1512 CC: [id number] DICTATION DATE: 08/25/20 1630 INJECTOR ASSEMBLER: 08/25/20 1652 ADM IN [facility] [address] [id number]
--- NOTE | 2020-08-29 19:39 | NUR ---
RECEIVED IN HALLWAY OUTSIDE OF NURSES STATION. SOCIALIZING WITH PEERS. CALM AND COOPERATIVE WITH CARE AND ASSESSMENT. NO SIGNS OF AGGRESSION. REDIRECT AND REORIENT NEEDED. CONTINUES TO SOCAILIZE WITH PEERS. CONTINUE PLAN OF CARE.
[2020-08-29 20:17] VITALS: BP 130/66
[2020-08-30 08:00] VITALS: BP 108/48
--- NOTE | 2020-08-30 14:08 | PN ---
PATIENT:UZMA CALDERON MEDICAL RECORD: [id number] LOCATION:[facility] ADMISSION DATE: 08/17/20 PROGRESS NOTE DATE OF SERVICE: 08/29/2020 SUBJECTIVE: The patient's case was discussed with staff. She has no new complaint. OBJECTIVE: The patient is sleeping and eating reasonably well. She has made no further statements about her having some sort of an affair or other women chasing him, which has been the [facility] where she has the delusion that someone is after her and then she attacks that person. I believe that this improvement is related to her medication management and I do think she should continue to take an antipsychotic medication for at least the next 6 months. TRANSINT:[id number] Voice Confirmation ID: [id number] DOCUMENT ID: [id number] OCHOA RIVERA MD at 1408 CC: [id number] DICTATION DATE: 08/29/20 1548 DISTRIBUTION WAREHOUSE MANAGER: 08/29/20 2302 ADM IN [place] [id number] [place] [id number]
--- NOTE | 2020-08-30 17:17 | NUR ---
RECEIVED PATIENT IN BED WITH EYES CLOSED. RESPONDS TO VERBAL STIMULI. CALM AND COOPERATIVE WITH ASSESSMENT AT THIS TIME. PRESCRIBED MEDICATIONS PROVIDED ORDERED. MED COMPLIANT AT THIS TIME. NO PARANOIA NOTED AT THIS TIME. REDIRECT AND REORIENT NEEDED. FALL PRECAUTIONS IN PLACE FOR SAFETY. WILL CONTINUE PLAN OF CARE.
[2020-08-30 20:00] VITALS: BP 113/50
--- NOTE | 2020-08-30 20:01 | NUR ---
RECEIVED IN BEDROOM. RESTING IN BED WITH EYUES OPEN. CALM AND COOPERATIVE WITH CARE AND ASSESSMENT. NO SIGNS OF AGGRESSION. REDIRECT AND REORIENT NEEDED. CONTINUES TO REST QUIETLY IN BED. CONTINUE PLAN OF CARE.
[2020-08-31 07:59] VITALS: BP 111/50
--- NOTE | 2020-08-31 08:27 | PN ---
PATIENT:UZMA CALDERON MEDICAL RECORD: [id number] LOCATION:[facility] ADMISSION DATE: 08/17/20 PROGRESS NOTE DATE OF SERVICE: 08/30/2020 SUBJECTIVE: The patient's case was discussed with staff. She has no new complaint. OBJECTIVE: The patient is sleeping and eating reasonably well. She has not mentioned, her delusion about women chasing her and I did not ask her about it. Her short-term memory is severely impaired. I anticipate she can be transitioned out of the hospital soon if this level of improvement continues. TRANSINT:[id number] Voice Confirmation ID: [id number] DOCUMENT ID: [id number] OCHOA RIVERA MD at 0827 CC: [id number] DICTATION DATE: 08/30/20 153 DONOR RELATIONS COORDINATOR: 08/30/20 2257 ADM IN [facility] [address] [id number]
--- NOTE | 2020-08-31 10:16 | NUR ---
Nutrition Re-Assessment: Diet: Diabetic PO intake: 75-100% x last 9 meals Last BM: 08/29/20. Wt: 135.4# (08/28/20); Admit Wt: 132# (08/17/20) Meds noted: metformin, lantus, SSI Labs noted: POC Glu 160(H) Estimated nutrition needs: 1500-1800cal (25-30kcal/kg), 35-50gms protein (0.6-0.8gms/kg), 1500-1800mL fluid (or per MD) Nutrition diagnosis: Altered nutrition related lab values r/t DM AEB elevated blood glucose. Nutrition goals: -PO intake >/=75% meals and snacks (meeting) -Stable weight DHS (meeting) -Glu at or near normal (progressing) Recommendations: -Continue diabetic diet. Will continue to honor food preferences within diet restrictions. -RD will continue to monitor PO intake and wt trend. -RD will follow-up within 7 days.
--- NOTE | 2020-08-31 14:49 | NUR ---
Patient rec'd up in wheelchair. A/O times 2 to person and situation. She is calm and cooperative. She is med compliant and takes her meds whole. She is a insulin dependent diabetic. She has not shown any aggression with other patients or staff today. She has participated in group therapy and stated she has "enjoyed". Will continue to encourage participation.
--- NOTE | 2020-08-31 18:09 | NUR ---
Blood glucose obtained and resulted at 439. phone call placed to Cinthia DUARTE and orders rec'd for Insulin Reg. 15 units now and change am dose to 30 units of Insulin from the 25 units. Lab requested to draw a Stat blood glucose level. Lab came and venipuntured for a fasting blood glucose.
[2020-08-31 20:00] VITALS: BP 138/70
--- NOTE | 2020-09-01 01:23 | NUR ---
RECEIVED PATIENT ON UNIT AT THE NURSE'S STATION, SHE WAS SOCIALZING WELL WITH THE OTHER RESIDENTS HOWVER SHE DID NOT WANT TO GO TO BED WHEN IT WAS TIME AND BECAME ARGUMENTATIVE AND SAID "LADY, YOU CAN NOT TELL US WHAT TO DO". COMPLIANT WITH MEDS THIS EVENING. SHE IS NOT "NERVOUS" THIS EVENING I HAVE SEEN HER IN THE PAST. NO ADVERSE REACTION TO MEDS. WILL FOLLOW POC
[2020-09-01 08:50] VITALS: BP 114/67
--- NOTE | 2020-09-01 08:54 | PN ---
PATIENT:UZMA CALDERON MEDICAL RECORD: [id number] LOCATION:[facility] ADMISSION DATE: 08/17/20 PROGRESS NOTE DATE OF SERVICE: 08/31/2020 SUBJECTIVE: The patient's case was discussed with staff. She has no new complaint. OBJECTIVE: The patient is in good behavioral control with poor insight about her situation. ASSESSMENT: Dementia. PLAN: Current medicine have been reviewed. The patient is no longer making the delusional statements and I actually asked her about them today and she did not repeat her concerns that other women are chasing her . I think if this level of improvement continues she could reasonably be transitioned back to the pen[facility] soon. However, there are some administrative obstacles. TRANSINT:[id number] Voice Confirmation ID: [id number] DOCUMENT ID: [id number] OCHOA RIVERA MD at 0854 CC: [id number] DICTATION DATE: 08/31/20 170 DIRECTORY ASSISTANCE OPERATOR: 09/01/[address] [facility] [address] [place] [address]
--- NOTE | 2020-09-01 15:10 | NUR ---
Patient rec'd this am lying in bed. She is A/O times 1 to person. She is calm and cooperative. She is med compliant. She takes meds whole without difficulty. she has some confusion at times and will ask the same questions repeadily lamine. questions related to her and why she is here. She has not displayed any s/sx of aggressiveness with the staff or the other patients .FSBS obtained and interventions completed.
[2020-09-01 20:00] VITALS: BP 108/42
--- NOTE | 2020-09-02 02:48 | NUR ---
B) Patient is alert and oriented to person and place, calm and cooperative this shift, I) Administered scheduled medications as ordered, assisted as needed, R) Mediation compliant, sleeping soundly at this time, P) Continue plan of care.
[2020-09-02 11:37] VITALS: BP 129/57
--- NOTE | 2020-09-02 12:30 | NUR ---
PT SITTING IN W/C AT THIS TIME. PT IS COMPLIANT WITH MEDS, VITALS AND ASSESSMENTS. CAN MAKE NEEDS KNOWN. CONFUSION NOTED. NO AGGRESSIVE BEHAVIORS NOTED. PT CONTS ON CONTACT ISOLATION DUE TO ESBL IN THE URINE. PT TOLERATES ISOLATION WELL. NO BEHAVIORS NOTED. REDIRECT AND REORIENT NEEDED. MONITOR ADLS AND ASSIST NEEDED. CONT ON AC&HS FSBS. CHAIR ALARM IN PLACE. ISOLATION GRAB IN PLACE. WILL CONT PLAN OF CARE.
--- NOTE | 2020-09-02 18:48 | NUR ---
pt daughter called and family member called to speak with her. pt speaking perfect belarusian at this time. tolerated well.
[2020-09-02 20:00] VITALS: BP 138/78
--- NOTE | 2020-09-02 21:21 | NUR ---
PT IS ALERT AND ORIENTED TO SELF AND SITUATION. RECEIVED IN THE HALLWAY OUTSIDE THE NURSES STATION SOCIALIZING WITH PEERS. SHE IS PLEASANT, CALM AND COOPERATIVE WITH STAFF. USES A WHEELCHAIR TO ASSIST WITH AMBULATION. ABLE TO VIOCE NEEDS AND WANTS. COMPLIANT WITH ALL MEDICATIONS. EASY TO REDIRECT.
--- NOTE | 2020-09-03 07:44 | NUR ---
The patient is awake and alert, she is lying in bed, she continues to be on isolation for esbl and e coli in her urine and needs reminders to wear her gown and gloves. She is in a good mood this morning. She has not mentioned any paranoia today or anything about her and his girlfriend. She can transfer and self propel in her w/c. Provide prescribed meds. Monitor her mood and behavior. She toilets and feeds herself. Continue POC.
[2020-09-03 08:14] VITALS: BP 124/60
[2020-09-03 20:00] VITALS: BP 107/54
--- NOTE | 2020-09-03 22:23 | NUR ---
PT IS ALERT AND ORIENTED TO SELF ONLY. SHE HAS POOR INSIGHT INTO HER SITUATION. CALM AND COOPERATIVE. COMPLIANT WITH ALL MEDICATIONS. EASY TO REDIRECT. PT RELATES THAT SHE WANTS TO GO HOME WITH HER DAUGHTER SUNNY. ABLE TO VOICE NEEDS AND WANTS.
--- NOTE | 2020-09-04 08:54 | NUR ---
The patient is in a pleasant mood this am, she has not made any mention of her cheating on her or his girlfriend coming after her to kill her. She has not shown any aggression today. She transfers and self propels in her w/c. Provide prescribed meds. The patient is compliant with meds. She enjoys interacting with staff and her peers. Continue POC.
[2020-09-04 09:00] VITALS: BP 116/59
--- NOTE | 2020-09-04 17:05 | NUR ---
FSBS 63.2% MILK AND GRAHAMN CRACKERS GIVEN.DENIES ANY DISTRESS.
--- NOTE | 2020-09-04 19:23 | NUR ---
RECEIVED IN BEDROOM. WASHING UP AT SINK. CALM AND COOPERATIVE WITH CARE AND ASSESSMENT. NO SIGNS OF AGGRESSION. REDIRECT AND REORIENT NEEDED. SOCIALIZING WITH PEERS AT THIS TIME. CONTINUE PLAN OF CARE.
[2020-09-04 21:35] VITALS: BP 134/64
[2020-09-05 10:31] VITALS: BP 145/55
--- NOTE | 2020-09-05 13:41 | PN ---
PATIENT:UZMA CALDERON MEDICAL RECORD: [id number] LOCATION:[facility] ADMISSION DATE: 08/17/20 PROGRESS NOTE DATE OF SERVICE: 09/01/2020 SUBJECTIVE: The patient's case was discussed with staff. She has no new complaint. OBJECTIVE: The patient is in good behavioral control with limited insight. At times, she does yell out for reasons that are unclear. ASSESSMENT: Dementia. PLAN: Current medicines have been reviewed. Her long-term prognosis is guarded. TRANSINT:[id number] Voice Confirmation ID: [id number] DOCUMENT ID: [id number] OCHOA RIVERA MD at 1341 CC: [id number] DICTATION DATE: 09/01/202003 BINDING CUTTER: 09/01/20 2110 ADM IN [place] [id number] [place] [address]
--- NOTE | 2020-09-05 17:45 | NUR ---
RECEIVED IN PATIENT ROOM. SITTING ON SIDE OF BED. COOPERATIVE WITH CARE AND ASSESSMENT. YELLING AT T THIS MORNING. VERY AGITATED FOR GETTING WOKE UP FOR BREAKFAST. STATED IT WAS LIKE BEING IN THE . REDIRECT AND REORIENT NEEDED. EATING DINNER AT THIS TIME. CONTINUE PLAN OF CARE.
--- NOTE | 2020-09-05 21:52 | NUR ---
RECEIVED IN HALLWAY OUTSIDE OF NURSES STATION. SOCAILIZING WITH PEERS. CALM AND COOPERATIVE WITH CARE AND ASSESSMENT. NO SIGNS OF AGGRESSION. REDIRECT AND REORIENT NEEDED. RESTING IN BED WITH EYES CLOSED AT THIS TIME. CONTINUE PLAN OF CARE.
[2020-09-05 22:55] VITALS: BP 139/54
[2020-09-06 08:00] VITALS: BP 110/75
--- NOTE | 2020-09-06 08:30 | NUR ---
RECEIVED IN PATIENT ROOM. RESTING IN BED WITH EYES CLOSED. CALM AND COOPERATIVE WITH CARE AND ASSESSMENT THIS MORNING. NO AGGRESSION. REDIRECT AND REORIENT NEEDED. EATING BREAKFAST AT THIS TIME. CONTINUE PLAN OF CARE.
--- NOTE | 2020-09-06 13:17 | PN ---
PATIENT:UZMA CALDERON MEDICAL RECORD: [id number] LOCATION:[facility] ADMISSION DATE: 08/17/20 PROGRESS NOTE DATE OF SERVICE: 09/05/2020 SUBJECTIVE: The patient's case was discussed with staff. She has no new complaint. OBJECTIVE: The patient is in good behavioral control. She has poor insight about her situation. She is tolerating her medicines well. ASSESSMENT: Dementia. PLAN: The patient's scheduled Haldol will be decreased slightly. Her long-term prognosis is guarded. TRANSINT:[id number] Voice Confirmation ID: [id number] DOCUMENT ID: [id number] OCHOA RIVERA MD at 1317 CC: [id number] DICTATION DATE: 09/05/20 1611 MAKEUP ARTISTRY INSTRUCTOR: 09/05/20 1735 ADM IN [facility] [address] [place] [address]
[2020-09-06 16:00] LABS: SARS-CoV-2 ANTIGEN NEGATIVE- SARS-COV-2 (NEGATIVE)
--- NOTE | 2020-09-06 17:30 | NUR ---
PATIENT VERY ANXIOUS AND AGITATED. ANGRY AT STAFF FOR SWITCHING HER TO ANOTHER ROOM. YELLING AT STAFF. ACCUSING STAFF OF HATING HER FOR BEING CHADIAN. STATING WE ARE HOLDING HER HOSTAGE. DEMANDING TO LEAVE. ACCUSED STAFF OF HITTING HER. GETTING OTHER PATIENTS WORKED UP. YELLING AND ARGUING WITH ANOTHER PATIENT AND ACCUSING THEM OF MAKING RACIAL CHADIAN COMMENTS. PRN ATIVAN 0.5 MG IM AND HALDOL 2 MG IM GIVEN.
[2020-09-06 20:00] VITALS: BP 104/60
--- NOTE | 2020-09-06 21:25 | NUR ---
RECEIVED IN HALLWAY OUTSIDE OF NURSES STATION. MOVING ABOUT IN HER WHEELCHAIR. CALM AND COOPERATIVE WITH CARE AND ASSESSMENT. NO SIGNS OF AGGRESSION. REDIRECT AND REORIENT NEEDED. RESTING QUIETLY IN BED AT THIS TIME. CONTINUE PLAN OF CARE.
--- NOTE | 2020-09-07 08:34 | PN ---
PATIENT:UMZA CALDERON MEDICAL RECORD: [id number] LOCATION:[facility] ADMISSION DATE: 08/17/20 PROGRESS NOTE DATE OF SERVICE: 09/06/2020 SUBJECTIVE: The patient's case was discussed with staff. She has no new complaint. OBJECTIVE: The patient is in good behavioral control. She is cooperative and has not been aggressive in any manner. ASSESSMENT: Dementia. PLAN: Current medicines have been reviewed. I anticipate she can be transitioned out of the hospital soon if this level of improvement continues. TRANSINT:[id number] Voice Confirmation ID: [id number] DOCUMENT ID: [id number] OCHOA RIVERA MD at 0834 CC: [id number] DICTATION DATE: 09/06/20 1618 WALLPAPER INSPECTOR AND SHIPPER: 09/06/20 2308 ADM IN [facility] [address] [place] [address]
--- NOTE | 2020-09-07 12:30 | NUR ---
RECEIVED IN PATIENT ROOM. RESTING IN BED WITH EYES OPEN. CALM AND COOPERATIVE WITH CARE AND ASSESSMENT. NO AGGRESSIVE BEHAVIOR. REDIRECT AND REORIENT NEEDED. EATING LUNCH AT THIS TIME. CONTINUE PLAN OF CARE.
--- NOTE | 2020-09-07 16:04 | NUR ---
Nutrition Re-Assessment Discharging tomorrow per MD notes. Diet: Diabetic PO intake: 100% x last 9 meals Last BM: 09/04/20 Wt: 138# (09/04/20); Admit Wt: 132.2# (08/17/20) Meds noted: lantus, metformin, SSI Labs noted: POC Glu 277(H) Estimated nutrition needs and nutrition diagnosis remain unchanged from initial nutrition assessment at this time. Progressing towards nutrition goals. Recommendations/Interventions: -Continue Diabetic diet. Will continue to honor food preferences. -RD will continue to monitor PO intake and wt trend. -RD will follow-up within 7 days.
--- NOTE | 2020-09-07 16:28 | NUR ---
[facility] TO DISCHARGE TOMORROW. PT WILL BE PICKED UP TOMORROW AT 11. THIS IS PT'S FAMILIES FIRST CHOICE OF PLACEMENT. PT WILL RETURN BACK TO ORIGINAL PLACEMENT. NO OTHER NEEDS VOICED AT THIS TIME. Carrie. VOICED UNDERSTANDING OF DISCUSSION.
[2020-09-07] MEDS ORDERED: ACETAMINOPHEN325 MG PO (16:59)
[2020-09-07] MEDS ORDERED: DONEPEZIL HCL10 MG PO (16:59)
[2020-09-07] MEDS ORDERED: LISINOPRIL5 MG PO (16:59)
[2020-09-07] MEDS ORDERED: HALOPERIDOL1 MG PO (17:00)
[2020-09-07] MEDS ORDERED: TRAZODONE HCL50 MG PO (17:00)
[2020-09-07 20:00] VITALS: BP 106/47
--- NOTE | 2020-09-08 00:38 | NUR ---
PT IS ALERT AND ORIENTED TO SELF ONLY. RECEIVED IN HER ROOM IN BED. CALM AND COOPERATIVE WITH STAFF. COMPLIANT WITH ALL MEDICATIONS. ABLE TO VOICE NEEDS AND WANTS. MONITOR FOR SAFETY.
--- NOTE | 2020-09-08 05:45 | NUR ---
WENT TO GIVE PT AM MEDICATION. RELATES THAT SHE FEELS DIZZY. PT FSBS 38. ADMINISTERED SNACK AND JUICE. WILL RECHECK IN 15 MINUTES.
--- NOTE | 2020-09-08 06:00 | NUR ---
PT FSBS 49 TRENDING UPWARD. PT RELATES THAT SHE IS FEELING MUCH BETTER BUT FEELS HUNGRY. WILL CONTINUE TO MONITOR.
[2020-09-08 09:37] VITALS: BP 142/71
--- NOTE | 2020-09-08 10:29 | NUR ---
NURSE CALLED REPORT TO NURSE DUCKWORTH AT [facility] IN [place]. NURSE GAVE REPORT STATING: BOWEL MOVEMENTS, DIET ORDER AND INTAKE, MED COMPLIANT, WEIGHT OBTAINED, FULL CODE, NO BEHAVIORS NOTED, PT IS COMPLIANT WITH STAFF AND MED. PT IS NOT HAVING NO BEHAVIORS IN THE PAST WEEK. PT CAN MAKE NEEDS KNOWN. PT IS CALM AND COOPERATIVE. NURSE CONTINUE TO INQUIRE ABOUT PTS BEHAVIOR. PAPERWORK FAXED TO FACILITY AND PAPER COPY SENT.
--- NOTE | 2020-09-08 10:41 | NUR ---
Patient rec'd this am up in a w/c in hallway. She is A/O times 2 to person and situation. She is calm and cooperative this am. She took her meds whole without difficulty. She states she is going home today. Her early am blood glucose was low so no insulin was given. Her blood glucose at 1030 was at 151. She attended group/activity/ therapy this am. She participated well. She was happy with group and the socialization. She demonstrates no signs of aggression or aggessive behavior with staff or with other patients.
--- NOTE | 2020-09-08 11:59 | PN ---
PATIENT:UZMA CALDERON MEDICAL RECORD: [id number] LOCATION:[facility] ADMISSION DATE: 08/17/20 PROGRESS NOTE DATE OF SERVICE: 09/07/2020 SUBJECTIVE: The patient's case was discussed with staff. She has no new complaint. OBJECTIVE: The patient is partially oriented. Her mood is euthymic. She has had no aggressive behaviors and no delusions. ASSESSMENT: Vascular dementia. PLAN: The patient will be discharged tomorrow morning. Follow up will be with her halfway physician. She has no evidence of acute or direct dangerousness. TRANSINT:[id number] Voice Confirmation ID: [id number] DOCUMENT ID: [id number] OCHOA RIVERA MD at 1159 CC: [id number] DICTATION DATE: 09/07/201657 EXPLOSIVE OPERATOR FUSE: 09/07/20 2328 DIS IN 09/08/20 [facility] [address] [place] [address]
== END 2020-09-08 11:41 | DRG 884 ==
LOC: D.PSYCH 16:14
PROVIDERS: ADMIT Psychiatry & Neurology Psychiatry; ATTEND Psychiatry & Neurology Psychiatry
DX: F01.51 Vascular dementia, unspecified severity, with behavioral disturbance (principal); N39.0 Urinary tract infection, site not specified; E11.42 Type 2 diabetes mellitus with diabetic polyneuropathy; Z79.4 Long term (current) use of insulin; I10 Essential (primary) hypertension; E78.5 Hyperlipidemia, unspecified; E03.9 Hypothyroidism, unspecified; M16.11 Unilateral primary osteoarthritis, right hip; E55.9 Vitamin D deficiency, unspecified; Z96.653 Presence of artificial knee joint, bilateral; F34.1 Dysthymic disorder; E53.8 Deficiency of other specified B group vitamins